=== PATIENT | male | born 1955 | race Caucasian/White ===

== ENCOUNTER 2017-12-25 13:40 | Outpatient (CLI) | payer BC | END 2017-12-25 13:41 | disposition home or self-care (01) | LOC: BICRAD 13:40 | PROVIDERS: ATTEND Family Medicine | DX: M25.511 Pain in right shoulder (principal) ==

== ENCOUNTER 2017-12-28 14:53 | Outpatient (CLI) | payer BC ==
--- NOTE | 2017-12-28 16:36 | MRI ---
MRI OF RIGHT SHOULDER PERFORMED WITHOUT CONTRAST ENHANCEMENT: Date: 12/28/17 HISTORY: Shoulder pain. FINDINGS: There are some mid AC joint hypertrophic changes present. There is a full thickness, partial width, supraspinatus tendon tear. Tear involves more the posterior half of the supraspinatus tendon. It measures 9.0 mm in AP dimension and is retracted by approximate ly 5-6 mm. It continues as an undersurface tear in the infraspinatus tendon and there actually appear s to be a defect extending to the bursal side of the musculotendinous junction of the anterior fibers of the infraspinatus. Motion artifact does degrade detail. The subscapularis muscle and tendon are intact, and the biceps tendon is normal in appearance. Labrum is not well assessed due to motion artifact. Inferior glenohumeral ligament is intact. No significant muscle atrophy is seen. IMPRESSION: Full thickness, partial width, supraspinatus tendon tear involving more the posterior portion of the supraspinatus tendon and extending into the infraspinatus as an undersurface tear. POS: OFF
== END 2017-12-28 14:54 | disposition home or self-care (01) ==
LOC: SCSMRI 14:53
PROVIDERS: ATTEND Orthopaedic Surgery
DX: M25.511 Pain in right shoulder (principal); M75.101 Unspecified rotator cuff tear or rupture of right shoulder, not specified as traumatic

== ENCOUNTER 2018-01-10 09:02 | Outpatient (CLI) | payer BC ==
[2018-01-10 10:43] LABS: #Eosinphils 0.2 thou/uL (0.0-0.7); #Lymphocytes 1.6 thou/uL (1.20-3.40); #Monocytes 0.6 thou/uL (0.11-0.59); #Neutrophils 4.2 thou/uL (1.40-6.50); %Basophils 0.5 % (0.0-1.0); %Eosinophils 2.7 % (0.0-10.0); %Lymphocytes 24.3 % (21.0-51.0); %Monocytes 9.2 % (0.0-10.0); %Neutrophils 63.4 % (42.0-75.0); Hemoglobin 15.6 g/dL (14.0-18.0); Mean Corpuscular HGB CONC 34.3 g/dL (32.0-36.0); Mean Corpuscular Hemoglobin 31.6 pg (27.0-31.0); Mean Corpuscular Volume 92.2 fl (80.0-94.0); Mean Platelet Volume 9.1 fL (7.4-10.4); Platelet Count 124 thou/uL (130-400); RBC Distribution Width 11.8 % (11.5-14.5); Red Blood Cell (RBC) Count 4.94 mill/uL (4.70-6.10); White Blood Cell (WBC) Count 6.6 thou/uL (4.8-10.8)
[2018-01-10 11:02] LABS: Anion Gap 12 mmol/L (10-20); BUN (Urea Nitrogen) 15 mg/dL (8.4-25.7); Calc. Creatinine Clearance 0 mL/min (70-130); Calcium 9.1 mg/dL (7.8-10.44); Carbon Dioxide 23 mmol/L (23-31); Chloride 109 mmol/L (98-107); Estimated GFR-MDRD 89; Glucose 88 mg/dL (80-115); Potassium 4.2 mmol/L (3.5-5.1); Sodium 140 mmol/L (136-145)
--- NOTE | 2018-01-10 20:25 | EKG ---
Test Reason : Blood Pressure : / mmHG Vent. Rate : 051 BPM Atrial Rate : 051 BPM P-R Int : 202 ms QRS Dur : 100 ms QT Int : 432 ms P-R-T Axes : 044 009 012 degrees QTc Int : 398 ms Poor data quality, interpretation may be adversely affected Sinus bradycardia Incomplete right bundle branch block Borderline ECG No previous ECGs available Confirmed by CONSTANCE MART, DR. Mckay ([id number]) on 01/10/2018 8:25:17 PM Referred By: IERO Confirmed By:DR. Nely NOLASCO MD
== END 2018-01-10 09:03 | disposition home or self-care (01) ==
LOC: LABBT 09:02
PROVIDERS: ATTEND Orthopaedic Surgery
DX: Z01.818 Encounter for other preprocedural examination (principal); M75.101 Unspecified rotator cuff tear or rupture of right shoulder, not specified as traumatic
CPT/HCPCS: 80048; 85025; 93005; 93010

== ENCOUNTER → 2018-01-12 | Day surgery (SDC) | payer BC ==
[2018-01-10 09:22] VITALS: BMI 29.6
[~2018-01-12] MED LIST: Bupivacaine/Epinephrine 0.25% 30 ML VIAL ONE; CEFAZOLIN/Water 2 GM/20 ML SYRINGE ONE; Fentanyl 100 MCG/2 ML VIAL IV PRN; Fentanyl 100 MCG/2 ML VIAL ONE; HYDROcodone/Acetaminophen 5/325 mg Tablet PO PRN; Ketorolac Tromethamine 30 MG/ML VIAL IVP SCH; Lidocaine 1% (PF) 30 ML VIAL ONE; Midazolam HCl 2 mg/2 ml Vial ONE; Ondansetron HCl/PF 4 MG/2 ML Vial IVP PRN; Ondansetron ODT 4 MG TAB ONE; Promethazine HCl 25 MG/ML VIAL IM PRN; Ropivacaine 0.2% 550 ML 550 ML NERVE BLCK SCH; Ropivacaine 0.2% HCl/PF 20 ML ONE; Zolpidem Tartrate 5 MG TAB PO PRN; traMADol HCl 50 MG TAB PO PRN
--- NOTE | 2018-01-12 11:00 | OP ---
DATE OF PROCEDURE: 01/12/2018 PREOPERATIVE DIAGNOSES: Right shoulder impingement with rotator cuff tear and biceps tendon instabil ity and tearing. POSTOPERATIVE DIAGNOSES: Right shoulder impingement with rotator cuff tear and biceps tendon instabi lity and tearing. PROCEDURE PERFORMED: 1. Right shoulder arthroscopy with decompression. 2. Arthroscopic rotator cuff repair. 3. Open biceps tenodesis. SURGEON: Edwin Marquez M.D. FACILITIES OPERATOR: Giovany Caballero PA-C. BLOOD LOSS: Minimal. COMPLICATIONS: None. IMPLANTS: We used one triple loaded titanium anchor. We used one Bio[employer]posite 4.75 SwiveLock. We u sed one BioComposite 7 x 23 Bio-Tenodesis screws. All these screws were made by [employer]. He went to the recovery room in stable condition. INDICATIONS: A 62-year-old male comes in complaining of pain and inability to raise the arm after an injury. Patient at this time opted to have surgery. PROCEDURE IN DETAIL: After appropriate consent forms were explained and signed, he was taken to the operating room and at this time was given general anesthetic. Once the level of anesthesia was appro priate, he was rolled into the left lateral decubitus position with all bony prominences well padded. Peña bag was inflated to hold him in this position. All bony prominences were well padded and axil la roll was placed underneath the left axilla. The right arm was then taken through full range of mo tion. It was then hung up with 15 pounds in standard arthroscopic fashion. The right shoulder and u pper extremity were then prepped and draped in the standard surgical fashion. Bony anatomic landmark s were then drawn out and subacromial space was infiltrated with Marcaine with epinephrine. Posterio r portal was established and the scope was placed into the shoulder joint. Anterior working portal w as made using a needle localization technique. Diagnostic arthroscopy commenced in the glenohumeral joint. The articular surface of the humeral head and glenoid were in good condition. No loose seamus s were noted in the axillary pouch. Rotator cuff appeared to have a small tear, but was not super ob vious. There was some significant synovitis behind the superior labrum and the rotator cuff tissue h ad started to attach and adhered to the labrum itself posteriorly. The superior labrum was found to completely disconnected from the glenoid and the biceps tendon was found to be unstable and flat. Arellano bscapularis was intact. Posterior labrum and inferior labrum were in good condition. At this time, a green cannula was placed anteriorly. We used a combination of the surface energy probe as well as a shaver to free up the overlying cuff from the superior labrum and create our separation there. We then debrided the superior labrum with the shaver. We then placed a suture through the biceps tendon using a needle and a FiberStick. We then cut the biceps off its insertion using arthroscopic scisso rs. At this time, we then removed our scope and replaced it in the subacromial space. Lateral worki ng portal was then made. We then were able to visualize the significant rotator cuff tear from the t op surface. This was a very odd tear and it had a long large longitudinal split in the front portion of the cuff. This longitudinal splint went nearly all the way through full thickness, but is basica lly about 75% of the way through. We had a small full thickness almost punctate tear of the supraspi natus insertion and once we debrided this and got down to good tissue, we were able to visualize this better. This tear then extended along the bursal surface posteriorly for a significant portion. At this time, a passport cannula was placed laterally and a green cannula was placed into the subacromi al space and we first took and placed a [id number] stitch using the scorpion device of some [place] [employer] rd. This was tied, we then placed a triple loaded titanium anchor into the tuberosity and used two o f the sutures to place one suture in the front portion of the split and another suture in the back po rtion of the split and once we did 2 of those, the third one was not necessary. These two sutures we re then tied down and effectively closed this portion of our cuff tear. We then placed a simple inve rted mattress suture along the inferior aspect of the bursal surface tear and this was brought down l aterally and placed through the SwiveLock into the humeral bone. This effectively gave us a nice rep air of our rotator cuff tendon. The arm was taken through full range of motion and no gapping was no familia. At this time, we removed the scope and drained the shoulder. Previously placed suture was used as a guide to make our cut with a 15-blade down through skin only. Bovie was used to coagulate any brisk venous bleeding. Sharp dissection was used to cut through the deltoid fascia and finger dissec tion was used to cut to take the deltoid down in line with its fibers to get to the underlying transv erse humeral ligament. Once this was opened up, the biceps was pulled out into the wound and was sut ured. The intraarticular portion of it was removed. We then cleaned down to the bicipital groove. We then placed our pin, drilled with a 7-mm reamer to a depth of 25 and placed our 7 x 23 [employer] e Bio-Tenodesis screw. Sutures were tied over top of this and at this time, the deltoid was allowed to close upon itself. It was thoroughly irrigated and dried. We then ran a Vicryl to close the delt oid fascia, 2-0 Vicryl and nylon sutures to close this incision as well as our portals. Bulky steril e dressing was applied. The patient was awakened and taken to the recovery room in stable condition. All counts were correct at the end of the case. He received preoperative IV antibiotics.
== END ==
LOC: SDC 05:58
PROVIDERS: ATTEND Orthopaedic Surgery
PROC: 0LS30ZZ Reposition Right Upper Arm Tendon, Open Approach (ICD-10-PCS; principal; 2018-01-12)
PROC: 0LM14ZZ Reattachment of Right Shoulder Tendon, Percutaneous Endoscopic Approach (ICD-10-PCS; principal; 2018-01-12)
PROC: 0RHJ04Z Insertion of Internal Fixation Device into Right Shoulder Joint, Open Approach (ICD-10-PCS; principal; 2018-01-12)
DX: M75.121 Complete rotator cuff tear or rupture of right shoulder, not specified as traumatic (principal); S46.111A Strain of muscle, fascia and tendon of long head of biceps, right arm, initial encounter; M75.41 Impingement syndrome of right shoulder; M25.311 Other instability, right shoulder; Z87.891 Personal history of nicotine dependence; Z79.82 Long term (current) use of aspirin; Z79.899 Other long term (current) drug therapy
CPT/HCPCS: A4306; C1713; J2001; J2250; J2795; J3010; Q0162

== ENCOUNTER 2018-05-29 10:59 | Outpatient (CLI) | payer BC ==
--- NOTE | 2018-05-29 16:54 | MRI ---
MRI CERVICAL SPINE NONCONTRAST: 05/29/18 HISTORY: Neck pain. Right arm radiculopathy. FINDINGS: Vertebral body heights and alignment are maintained. C2-3, C3-4, C4-5, mild osteophytosis. The centra l canal and neural foramina remain patent. C5-6: Uncovertebral and facet hypertrophy. Severe bilateral foraminal stenoses. C6-7: Right posterolateral disc protrusion with slight effacement upon the right neural foramen. Mode rate osteophytosis. Mild to moderate central canal stenosis. C7-T1: Central canal and neural foramina are patent. IMPRESSION: Degenerative changes of the lower cervical spine, including severe bilateral foraminal stenosis at th e C5-6 level. Clinical correlation regarding each C6 dermatome is required. POS: JANIE
== END 2018-05-29 11:00 | disposition home or self-care (01) ==
LOC: SCSMRI 10:59
PROVIDERS: ATTEND Psychiatry & Neurology Neurology
DX: M50.223 Other cervical disc displacement at C6-C7 level (principal); M47.892 Other spondylosis, cervical region; M99.81 Other biomechanical lesions of cervical region
CPT/HCPCS: 72141

== ENCOUNTER 2021-10-27 15:25 | Outpatient (CLI) | payer MEDICARE, BC | END 2021-10-27 15:26 | disposition home or self-care (01) | LOC: BICRAD 15:25 | PROVIDERS: ATTEND Family Medicine | DX: M54.50 Low back pain, unspecified (principal); M47.816 Spondylosis without myelopathy or radiculopathy, lumbar region | CPT/HCPCS: 72100 ==